=== PATIENT | female | born 2005 | race Caucasian/White ===

== ENCOUNTER 2024-07-23 22:51 | Outpatient (CLI) | payer OTHER, SELFPAY ==
[2024-07-23 23:49] LABS: Hepatitis C Virus Antibody Non-Reactive (Nonreactive)
[2024-07-24 00:10] LABS: HIV 1 & 2 Antibody Non-Reactive (Non-Reactiv); HIV 1 & 2 Antigen Non-Reactive (Non-Reactiv)
[2024-07-24 01:24] LABS: Hepatitis B Surface Antigen Non-Reactive (Nonreactive)
[2024-07-24 01:25] LABS: Hepatitis B Surface AB 6.9 (11.5-1000)
== END 2024-07-23 22:52 | disposition home or self-care (01) ==
PROVIDERS: PCP Electrodiagnostic Medicine; Visit Provider Family Medicine
DX: Z20.89 Contact with and (suspected) exposure to other communicable diseases (principal)
CPT/HCPCS: 36415; 86706; 86803; 87340; 87806

== ENCOUNTER → 2024-10-28 15:33 | Outpatient (BNVA) | payer OTHER, SELFPAY | PROVIDERS: PCP Electrodiagnostic Medicine; Visit Provider Nurse Practitioner Women's Health | DX: L70.0 Acne vulgaris (principal); L68.0 Hirsutism | CPT/HCPCS: 84402; 84403 ==